=== PATIENT | male | born 1955 | race Caucasian/White ===

== ENCOUNTER → 2016-06-27 | Outpatient (REF) | payer BC ==
[~2016-06-27] MED LIST: ANTIBIOTIC; BABY81CH; KEFL500C; PERC5TAB8; ZOCO10TA
[2016-06-27 11:52] LABS: MEAN CORPUSCULAR HGB CONC 33.5 g/dl (32.0-36.5); MEAN CORPUSCULAR VOLUME 92.5 fl (80.0-96.0); RED CELL DISTRIBUTION WIDTH 12.4 % (11.5-14.5); WHITE BLOOD COUNT 6.2 K/mm3 (4.0-10.0)
[2016-06-27 12:14] LABS: ALBUMIN 3.6 GM/DL (3.2-5.2); ALBUMIN/GLOBULIN RATIO 1.03 (1.00-1.93); ALKALINE PHOSPHATASE 90 U/L (45-117); ALT/SGPT 25 U/L (12-78); ANION GAP 8 MEQ/L (8-16); AST/SGOT 16 U/L (15-37); BILIRUBIN,TOTAL 0.7 MG/DL (0.2-1.0); BLOOD UREA NITROGEN 19 MG/DL (7-18); CALCIUM LEVEL 8.2 MG/DL (8.5-10.1); CARBON DIOXIDE LEVEL 29 MEQ/L (21-32); CHLORIDE LEVEL 107 MEQ/L (98-107); CHOLESTEROL LEVEL 256 MG/DL (<200); GLOMERULAR FILTRATION RATE > 60.0 (>56); GLUCOSE, FASTING 98 MG/DL (70-105); POTASSIUM SERUM 5.1 MEQ/L (3.5-5.1); SODIUM LEVEL 144 MEQ/L (136-145); TOTAL PROTEIN 7.1 GM/DL (6.4-8.2); TRIGLYCERIDES LEVEL 75 MG/DL (<150)
== END ==
LOC: M SFHCLERA 08:47
PROVIDERS: ATTEND Family Medicine
DX: I16.0 Hypertensive urgency (principal)

== ENCOUNTER → 2016-06-29 | Outpatient (CLI) | payer BC ==
--- NOTE | 2016-06-29 09:04 | REP ---
Abdominal aortic sonography: History: Evaluate for abdominal aortic aneurysm. Findings: The abdominal aorta measures 2.0 cm in AP dimension by 3.2 cm in right to left dimension at the diaphragmatic hiatus. At mid aortic level the dimensions of the aorta are 2.1 x 2.5 cm. The distal aorta measures 2.0 x 2.4 cm. Right and left common iliac arteries are slightly ectatic measuring 1.4 cm each in AP dimension. No aneurysm or periaortic disease is seen. Impression: No evidence of abdominal aortic aneurysm. Signed by Bladimir Brasher MD 06/29/2016 10:44 A
== END ==
LOC: M RAD 06:57
PROVIDERS: ATTEND Family Medicine
DX: Z13.6 Encounter for screening for cardiovascular disorders (principal)

== ENCOUNTER → 2016-12-21 | Outpatient (REF) | payer BC ==
[~2016-12-21] MED LIST changes: +CLON-412 PO; +MELO15TA4 PO; +NEUR300C PO; +TRAM50TA2 PO
[2016-12-21 19:02] LABS: ALBUMIN 3.5 GM/DL (3.2-5.2); ALBUMIN/GLOBULIN RATIO 0.92 (1.00-1.93); ALKALINE PHOSPHATASE 79 U/L (45-117); ALT/SGPT 36 U/L (12-78); ANION GAP 9 MEQ/L (8-16); AST/SGOT 22 U/L (15-37); BILIRUBIN,TOTAL 0.3 MG/DL (0.2-1.0); BLOOD UREA NITROGEN 27 MG/DL (7-18); CARBON DIOXIDE LEVEL 26 MEQ/L (21-32); CHLORIDE LEVEL 109 MEQ/L (98-107); CREATININE FOR GFR 0.95 MG/DL (0.70-1.30); GLOMERULAR FILTRATION RATE > 60.0 (>49); GLUCOSE, FASTING 106 MG/DL (80-110); POTASSIUM SERUM 4.7 MEQ/L (3.5-5.1); SODIUM LEVEL 144 MEQ/L (136-145); TOTAL PROTEIN 7.3 GM/DL (6.4-8.2)
[2016-12-21 19:22] LABS: BASO % 0.4 % (0.0-1.0); EOS # 0.2 K/mm3 (0.0-0.50); EOS % 2.8 % (0.0-3.0); LARGE UNSTAINED CELL # 0.2 K/mm3 (0.0-0.4); LARGE UNSTAINED CELL % 2.4 % (0.0-4.0); MEAN CORPUSCULAR HEMOGLOBIN 32.2 pg (27.0-33.0); MEAN CORPUSCULAR HGB CONC 34.1 g/dl (32.0-36.5); MEAN CORPUSCULAR VOLUME 94.5 fl (80.0-96.0); MONO # 0.4 K/mm3 (0.0-0.8); MONO % 6.5 % (0.0-5.0); NEUTROPHILS # 4.5 K/mm3 (1.8-7.7); NEUTROPHILS % 71.9 % (36.0-66.0); PLATELET COUNT, AUTOMATED 215 k/mm3 (150-450); RED CELL DISTRIBUTION WIDTH 12.9 % (11.5-14.5); WHITE BLOOD COUNT 6.3 K/mm3 (4.0-10.0)
== END ==
LOC: M LABDRAW1 16:35
PROVIDERS: ATTEND Orthopaedic Surgery
DX: M54.5 Low back pain (principal)

== ENCOUNTER → 2017-02-15 | Outpatient (CLI) | payer BC ==
[2017-02-15 11:41] LABS: MEAN CORPUSCULAR HEMOGLOBIN 30.8 pg (27.0-33.0); MEAN CORPUSCULAR HGB CONC 33.7 g/dl (32.0-36.5); MEAN CORPUSCULAR VOLUME 91.4 fl (80.0-96.0); PLATELET COUNT, AUTOMATED 225 10^3/uL (150-450); RED CELL DISTRIBUTION WIDTH 12.7 % (11.5-14.5); WHITE BLOOD COUNT 8.1 10^3/uL (4.0-10.0)
[2017-02-15 11:54] LABS: INR 1.06
[2017-02-15 12:16] LABS: ERYTHROCYTE SEDIMENTATION RATE 12 mm/hr (0-20)
[2017-02-15 12:28] LABS: ALBUMIN 3.9 GM/DL (3.2-5.2); ALBUMIN/GLOBULIN RATIO 1.05 (1.00-1.93); ALKALINE PHOSPHATASE 79 U/L (45-117); ALT/SGPT 36 U/L (12-78); ANION GAP 6 MEQ/L (8-16); AST/SGOT 21 U/L (15-37); BILIRUBIN,TOTAL 0.6 MG/DL (0.2-1.0); BLOOD UREA NITROGEN 19 MG/DL (7-18); CARBON DIOXIDE LEVEL 29 MEQ/L (21-32); CHLORIDE LEVEL 105 MEQ/L (98-107); CREATININE FOR GFR 0.86 MG/DL (0.70-1.30); GLOMERULAR FILTRATION RATE > 60.0 (>49); GLUCOSE, FASTING 87 MG/DL (80-110); POTASSIUM SERUM 4.5 MEQ/L (3.5-5.1); SODIUM LEVEL 140 MEQ/L (136-145); TOTAL PROTEIN 7.6 GM/DL (6.4-8.2)
--- NOTE | 2017-02-15 14:27 | REP ---
CHEST X-RAY: TWO VIEWS. HISTORY: Preop assessment. FINDINGS: There is a zone of linear fibrosis in the right lower lobe. The lungs are otherwise well inflated and clear. Pleural angles are sharp. Heart size is normal. The aorta is somewhat tortuous. There are degenerative changes in the thoracic spine. There is some benign pleural plaquing along each lateral chest wall. No free pleural effusion is seen. IMPRESSION: Linear fibrosis right lower lobe. Otherwise no acute disease. Signed by Bladimir Brasher MD 02/15/2017 02:56 P
--- NOTE | 2017-02-15 19:49 | ECGEPIP ---
Stationary ECG Study [facility] Test Date: 2017-02-15 Pat Name: JANIYA AGUILLON Department: Room: - Gender: M Rd Lab Technician: ODILIA : [id number] Requested By: Patrick Flores Order Number: [id number] Reading MD: Dexter Suggs Measurements Intervals [place] Rate: 70 P: 19 AR: 155 QRS: -70 QRSD: 105 T: 14 QT: 391 QTc: 424 Interpretive Statements SINUS RHYTHM Poor R-wave progression PATTERN CONSISTENT WITH PULMONARY DISEASE INCOMPLETE RIGHT BUNDLE BRANCH BLOCK LEFT ANTERIOR FASCICULAR BLOCK Nonspecific T-wave abnormalities. No prior ECG available for comparison at the time of interpretation. Electronically Signed On 02-15-2017 19:49:33 EDT by Dexter Suggs
== END ==
LOC: M ADMPAT 10:22
PROVIDERS: ATTEND Orthopaedic Surgery
DX: M16.12 Unilateral primary osteoarthritis, left hip (principal)

== ENCOUNTER → 2017-03-07 | Outpatient (CLI) | payer BC ==
--- NOTE | 2017-03-07 21:46 | ECHO ---
DATE OF PROCEDURE: 03/07/2017 AGE: 61 GENDER: Male HEIGHT: 72 inches WEIGHT: 255 pounds BODY SURFACE AREA: 2.36 m2. PATIENT LOCATION: Outpatient. REFERRING PHYSICIAN: Az Goff MD INDICATION: Abnormal EKG. Pulmonary hypertension. 2-D MEASUREMENTS: RV: 3.8 cm LV: 4.7 cm Septum: 1.3 cm Posterior wall: 1.3 cm Aortic root: 3.2 cm LA: 4.2 cm LVEF: 65% DOPPLER MEASUREMENTS: AV: 2.0 m/s LVOT: 1.2 m/s LVOT diameter: 2.5 cm Mean AV gradient: 7 mmHg MV-E: 73, A: 81, EA ratio: 0.9 Early mitral deceleration time: 229 ms E prime: 6.6, A prime: 9.6, E/E prime ratio: 11 PV: 1.1 m/s Pulmonary artery acceleration time: 123 ms RVSP: 43 mmHg IVC: 1.8 cm COMMENTS: Normal sinus rhythm with incomplete right bundle branch block. Technically challenging study in light of the patient's body habitus but diagnostically useful information was still obtained. Mildly dilated left atrium, but normal left ventricular size. Right heart chamber sizes were upper limits of normal. Left ventricle (LV) wall thickness was mildly increased symmetrically on real-time imaging from the parasternal and apical projections. Wall motion was symmetrical and normal to slightly hyperkinetic. Slightly thickened mitral annulus, but normal leaflet thickness and excursion with no posterior systolic buckling. Three equal size aortic cusps with marginally thickened cusp edges, but adequate cusp separation. Normal aortic root size. No apparent intracardiac mass or pericardial effusion. Color flow Doppler study taken from the parasternal and apical projection showed trace mitral, no aortic, and mild tricuspid insufficiency. Guided continuous wave Doppler of his aortic valve showed a peak systolic velocity upper limits of normal. LV outflow tract pulsed Doppler was also slightly increased in keeping with a hyperdynamic circulation. With the observed mean transvalvular gradient, there was no significant LV outflow tract obstruction. Pulsed and continuous wave Doppler of his LV inflow tract taken from the apical four-chamber projection showed normal diastolic filling velocities against mitral stenosis. There was more prominent late diastolic/atrial dependent filling pattern. Diastolic dysfunction was confirmed by a prolonged early mitral deceleration time and tissue Doppler of his mitral annulus. However, current estimated mean left atrial pressure was upper limits of normal. Pulsed and continuous wave Doppler of his pulmonary trunk showed a normal peak systolic velocity against RV outflow tract obstruction. His pulmonary artery acceleration time was lower limits of normal against a significantly elevated pulmonary vascular resistance. Guided continuous wave Doppler of his tricuspid valve allowed our estimation of his right ventricular systolic pressure (moderately increased). His inferior vena cava was of normal size with normal respiratory collapse against an elevated central venous pressure at this time. CONCLUSIONS: Technically difficult study in light of the patient's body habitus. Mild concentric left ventricle hypertrophy with hyperkinetic wall motion. Mildly dilated left atrium with Doppler evidence of impairment of LV diastolic function but current estimated mean left atrial pressure upper limits of normal. Right heart chamber sizes were upper limits of normal with normal contraction. Estimated pulmonary arterial pressure was moderately increased. Normal IVC size and collapse against an elevated central venous pressure. Subtle degenerative changes of the mitral and aortic valvular apparatus without functional valvular abnormality.
== END ==
LOC: M CARPUL 07:41
PROVIDERS: ATTEND Family Medicine
DX: Z01.818 Encounter for other preprocedural examination (principal)

== ENCOUNTER → 2018-01-06 | Outpatient (REF) | payer BC ==
[2018-01-06 17:36] LABS: ALBUMIN 3.9 GM/DL (3.2-5.2); ALBUMIN/GLOBULIN RATIO 1.03 (1.00-1.93); ALKALINE PHOSPHATASE 84 U/L (45-117); ALT/SGPT 29 U/L (12-78); ANION GAP 11 MEQ/L (8-16); AST/SGOT 19 U/L (7-37); BILIRUBIN,TOTAL 0.8 MG/DL (0.2-1.0); BLOOD UREA NITROGEN 22 MG/DL (7-18); CALCIUM LEVEL 8.8 MG/DL (8.8-10.2); CARBON DIOXIDE LEVEL 26 MEQ/L (21-32); CHLORIDE LEVEL 105 MEQ/L (98-107); CHOLESTEROL LEVEL 297 MG/DL (<200); CHOLESTEROL RISK RATIO 6.319 (<5); CREATININE FOR GFR 0.88 MG/DL (0.70-1.30); GLOMERULAR FILTRATION RATE > 60.0 (>49); GLUCOSE, FASTING 92 MG/DL (70-100); HDL CHOLESTEROL 47 MG/DL (>40); LDL CHOLESTEROL 213 MG/DL (<100); NON-HDL-C 250 MG/DL; POTASSIUM SERUM 4.3 MEQ/L (3.5-5.1); SODIUM LEVEL 142 MEQ/L (136-145); TOTAL PROTEIN 7.7 GM/DL (6.4-8.2); TRIGLYCERIDES LEVEL 185 MG/DL (<150)
== END ==
LOC: M SFHCLERA 10:27
DX: E78.5 Hyperlipidemia, unspecified (principal)
CPT/HCPCS: 80053

== ENCOUNTER → 2018-02-18 | Outpatient (CLI) | payer BC | LOC: M LRY 17:41 | DX: R22.31 Localized swelling, mass and lump, right upper limb (principal); M19.041 Primary osteoarthritis, right hand; M25.741 Osteophyte, right hand; M21.241 Flexion deformity, right finger joints; S61.210D Laceration without foreign body of right index finger without damage to nail, subsequent encounter | CPT/HCPCS: 73140 ==

== ENCOUNTER 2018-04-14 15:49 | Emergency (ER) | payer BC, OTHER, SELFPAY ==
[~2018-04-14 15:49] MED LIST changes: +EPINEPHrine 1MG/10ML SYRINGE 1.5IN IV STA; +MELO15TA28 PO; -MELO15TA4 PO; +SODIUM BICARBONATE 8.4% INJ 50 ML SYRINGE IV STA
[2018-04-14] MEDS ORDERED: SODIUM BICARBONATE 8.4% INJ 50 ML SYRINGE IV STA (15:51)
[2018-04-14] MEDS ORDERED: EPINEPHrine 1MG/10ML SYRINGE 1.5IN IV STA ×3 (15:52→15:58)
[2018-04-14] MEDS ORDERED: SODIUM BICARBONATE 8.4% INJ 50 ML SYRINGE ONE (17:09)
[2018-04-14] MEDS ORDERED: EPINEPHrine 1MG/10ML SYRINGE 1.5IN ONE (17:09)
== END 2018-04-14 20:39 | disposition expired ==
LOC: M ED 15:49
DX: I49.01 Ventricular fibrillation (principal); I46.9 Cardiac arrest, cause unspecified; I10 Essential (primary) hypertension